=== PATIENT | male | born 1945 | race Caucasian/White ===

== ENCOUNTER → 2017-07-22 | Outpatient (CLI) | payer OTHER ==
[~2017-07-22] MED LIST: AMLO5TAB2 PO; ATOR40TA69 PO; CETI10CA8 PO; CHOL100040 PO; FLUO90CA4 PO; GABA-531 PO; LORA0.5T2 PO; MAGN1TAB2 PO; OMEG-98 PO; OXYB5TAB10 PO; REGADENOSON 0.4 MG/5 ML PF SYG IVP SCH; TAMS0.4C32 PO; [UNRECOGNIZED DRUG - CODE] PO
== END | disposition home or self-care (01) ==
LOC: SHCH 07:40
PROVIDERS: ATTEND Internal Medicine Cardiovascular Disease
DX: I25.709 Atherosclerosis of coronary artery bypass graft(s), unspecified, with unspecified angina pectoris (principal)
CPT/HCPCS: 78452; 93017; 96374; A9500 ×2; J2785

== ENCOUNTER 2020-01-17 09:57 | Inpatient (IN) | payer OTHER ==
[~2020-01-17] VITALS: Ht 177.8 cm; Wt 108.9 kg
[~2020-01-17 09:57] MED LIST changes: -AMLO5TAB2 PO; +AMLO5TAB9 PO; -OXYB5TAB10 PO; +OXYB5TAB15 PO; -REGADENOSON 0.4 MG/5 ML PF SYG IVP SCH
[2020-01-17 10:30] LABS: BASOPHILS % (AUTO) 0.7 % (0.0-5.0); EOSINOPHILS % (AUTO) 1.3 % (0.0-8.0); HEMATOCRIT 41.8 % (42-54); LYMPHOCYTES % (AUTO) 14.4 % (21.0-51.0); MEAN CORPUSCULAR HEMOGLOBIN 32.9 pg (27.0-33.0); MEAN CORPUSCULAR VOLUME 96.8 fL (79-99); MONOCYTES % (AUTO) 8.9 % (3.0-13.0); NEUTROPHILS % (AUTO) 74.2 % (40.0-77.0); PLATELET COUNT (AUTO) 143 K/uL (130-400); RED BLOOD CELL COUNT(AUTO) 4.32 MIL/uL (4.50-6.20); RED CELL DISTRIBUTION WIDTH 12.4 % (11.0-15.5); WHITE BLOOD COUNT (AUTO) 7.5 K/uL (4.8-10.8)
[2020-01-17 10:45] LABS: CREATININE 1.1 mg/dL (0.5-1.5); POTASSIUM 4.1 mmol/L (3.5-5.1)
[2020-01-17 10:50] LABS: ALBUMIN 3.9 g/dL (3.5-5.0); INR 1.06 (0.85-1.15); PARTIAL THROMBOPLASTIN TIME 27.2 SEC (26.3-35.5); PROTHROMBIN TIME 11.4 SEC (9.6-11.6); TOTAL PROTEIN, SERUM 7.3 g/dL (6.0-8.3)
[2020-01-17] MEDS ORDERED: ASPIRIN 325 MG TABLET ONE (11:11)
[2020-01-17] MEDS ORDERED: NITROGLYCERIN 0.4 MG SL TAB SL ONE (11:12)
[2020-01-17 11:41] LABS: APPEARANCE,URINE Clear (CLEAR); BILIRUBIN,URINE Negative (NEGATIVE); COLOR,URINE Yellow (YELLOW); GLUCOSE, URINE (UA) Negative (NEGATIVE); KETONES,URINE Negative (NEGATIVE); LEUKOCYTE ESTERASE ,URINE Trace (NEGATIVE); NITRATE,URINE Positive (NEGATIVE); OCCULT BLOOD,URINE Negative (NEGATIVE); PROTEIN,URINE Negative (NEGATIVE)
[2020-01-17] MEDS ORDERED: MORPHINE SULFATE 2 MG/ML 1ML SYG ONE (11:42)
[2020-01-17 11:56] LABS: BACTERIA,URINE Many /HPF (None Seen); RBC,URINE 0-1 /HPF (0-1); SPERM,URINE Rare /HPF (None Seen); SQUAMOUS EPITHELIAL CELL,UR Rare /HPF (0-2)
[2020-01-17] MEDS ORDERED: CEFTRIAXONE SODIUM 1 GM ONE (12:27)
[2020-01-17] MEDS ORDERED: NITROGLYCERIN 0.4 MG SL TAB SL PRN (14:15)
[2020-01-17] MEDS ORDERED: LACTULOSE 20 GM/30 ML UDCUP PO PRN (14:15)
[2020-01-17] MEDS ORDERED: ZOLPIDEM TARTRATE 5 MG TAB PO PRN (14:15)
[2020-01-17] MEDS ORDERED: HYDRALAZINE HCL 20 MG/ML VIAL IV PRN (14:15)
[2020-01-17] MEDS ORDERED: ONDANSETRON HCL 4 MG/2 ML VIAL IV PRN (14:15)
[2020-01-17] MEDS ORDERED: MORPHINE SULFATE 2 MG/ML 1ML SYG IV PRN (14:15)
[2020-01-17] MEDS ORDERED: ACETAMINOPHEN 325 MG TAB PO PRN ×2 (14:15)
[2020-01-17 15:06] LABS: HEMOGLOBIN A1C 6.9 % (4.0-6.0)
[2020-01-17 15:13] LABS: THYROID STIMULATING HORMONE 4.57 uIU/mL (0.36-3.74)
[2020-01-17] MEDS ORDERED: MORPHINE SULFATE 4 MG/1ML SYG ONE (17:47)
[2020-01-17] MEDS ORDERED: METOPROLOL TARTRATE 25 MG TAB PO SCH (21:00)
[2020-01-17] MEDS ORDERED: LEVOFLOXACIN 500 MG/D5W 100 ML 100 ML ONE (22:54)
[2020-01-17] MEDS ORDERED: METOPROLOL TARTRATE 25 MG TAB ONE (22:54)
[2020-01-18] MEDS ORDERED: INSULIN HUMULIN R 100 UNIT/ML 3ML ONE ×2 (08:09→12:29)
[2020-01-18 09:00] LABS: BASOPHILS % (AUTO) 0.3 % (0.0-5.0); EOSINOPHILS % (AUTO) 0.1 % (0.0-8.0); HEMATOCRIT 44.2 % (42-54); LYMPHOCYTES % (AUTO) 9.6 % (21.0-51.0); MEAN CORPUSCULAR HEMOGLOBIN 33.2 pg (27.0-33.0); MEAN CORPUSCULAR HGB CONC 34.4 g/dL (32.0-36.0); MEAN CORPUSCULAR VOLUME 96.5 fL (79-99); MONOCYTES % (AUTO) 4.6 % (3.0-13.0); NEUTROPHILS % (AUTO) 84.9 % (40.0-77.0); PLATELET COUNT (AUTO) 159 K/uL (130-400); RED BLOOD CELL COUNT(AUTO) 4.58 MIL/uL (4.50-6.20); RED CELL DISTRIBUTION WIDTH 12.3 % (11.0-15.5); WHITE BLOOD COUNT (AUTO) 9.1 K/uL (4.8-10.8)
[2020-01-18] MEDS: ENOXAPARIN SODIUM 40 MG/0.4 ML SYRINGE SQ SCH (09:00)
[2020-01-18] MEDS ORDERED: ASPIRIN 325 MG TABLET PO SCH (09:00)
[2020-01-18 09:14] LABS: CREATININE 1.4 mg/dL (0.5-1.5); POTASSIUM 4.2 mmol/L (3.5-5.1)
[2020-01-18] MEDS ORDERED: ENOXAPARIN SODIUM 40 MG/0.4 ML SYRINGE SQ ONE (10:17)
[2020-01-18] MEDS ORDERED: ASPIRIN 325 MG TABLET ONE (10:17)
[2020-01-18] MEDS ORDERED: METOPROLOL TARTRATE 25 MG TAB ONE (10:18)
[2020-01-18] MEDS: LEVOFLOXACIN 500 MG/D5W 100 ML 100 ML IV SCH ×2 (14:15→16:59)
[2020-01-18 16:00] VITALS: BP 165/83
[2020-01-18] MEDS ORDERED: METF-446 PO (16:28)
[2020-01-18] MEDS ORDERED: FINA5TAB41 PO (16:28)
[2020-01-18] MEDS ORDERED: DOCU100T PO (16:28)
[2020-01-18] MEDS ORDERED: CARV12.511 PO (16:28)
[2020-01-18] MEDS ORDERED: LISI-617 PO (16:28)
[2020-01-18] MEDS ORDERED: ISOS30TA6 PO (16:28)
[2020-01-18] MEDS ORDERED: BUPR150T8 PO (16:28)
[2020-01-18] MEDS ORDERED: ASPI-556 PO (16:28)
[2020-01-18] MEDS ORDERED: SENN8.6T32 PO (16:28)
[2020-01-18] MEDS ORDERED: B12 PO (16:30)
[2020-01-18] MEDS ORDERED: NITR0.4T50 SL (16:31)
[2020-01-18] MEDS: INSULIN HUMULIN R 100 UNIT/ML 3ML SQ SCH ×2 (16:59→21:00)
--- NOTE | 2020-01-18 19:21 | NUR ---
HAND OFF REPORT GIVEN TO TIFFANIE MOON
[2020-01-18 20:19] VITALS: BP 168/87
[2020-01-19] VITALS (8 sets, daily range): BP systolic 102–178; BP diastolic 57–84
[2020-01-19] MEDS: INSULIN HUMULIN R 100 UNIT/ML 3ML SQ SCH ×4 (06:07→20:40)
[2020-01-19 07:55] LABS: BASOPHILS % (AUTO) 0.4 % (0.0-5.0); EOSINOPHILS % (AUTO) 0.6 % (0.0-8.0); HEMATOCRIT 47.8 % (42-54); LYMPHOCYTES % (AUTO) 9.8 % (21.0-51.0); MEAN CORPUSCULAR HEMOGLOBIN 32.5 pg (27.0-33.0); MEAN CORPUSCULAR HGB CONC 34.5 g/dL (32.0-36.0); MEAN CORPUSCULAR VOLUME 94.3 fL (79-99); MONOCYTES % (AUTO) 5.9 % (3.0-13.0); PLATELET COUNT (AUTO) 178 K/uL (130-400); RED BLOOD CELL COUNT(AUTO) 5.07 MIL/uL (4.50-6.20); RED CELL DISTRIBUTION WIDTH 12.3 % (11.0-15.5); WHITE BLOOD COUNT (AUTO) 10.1 K/uL (4.8-10.8)
--- NOTE | 2020-01-19 08:24 | NUR ---
CM NOTE CM INITIAL ASSESSMENT DONE BY JEAN MUNROE RN . FACE SHEET UPDATED, PATIENT HAD CPAP, CANE AND RAMP, [facility]. WILL UPDATE INITIAL ASSESMENT INFORMATION TODAY Addendum: 01/19/20 at 0826 by SHENA CRONIN RN CM Amended: Links added.
[2020-01-19] MEDS ORDERED: ASPIRIN 81MG TAB.CHEW ONE (08:46)
[2020-01-19] MEDS: LISINOPRIL 2.5 MG TABLET PO SCH (08:50)
[2020-01-19] MEDS: GABAPENTIN 300 MG CAPSULE PO SCH ×2 (08:50→20:31)
[2020-01-19] MEDS: ISOSORBIDE MONO 30MG TAB SR PO SCH (08:52)
[2020-01-19] MEDS: ENOXAPARIN SODIUM 40 MG/0.4 ML SYRINGE SQ SCH (08:53)
[2020-01-19] MEDS: FINASTERIDE 5 MG TABLET PO SCH (08:53)
[2020-01-19] MEDS: TAMSULOSIN HCL 0.4 MG CAP.ER.24H PO SCH (08:53)
[2020-01-19] MEDS: SENNOSIDES 8.6 MG TABLET PO SCH (08:53)
[2020-01-19] MEDS: BUPROPION HCL 150 MG TABLET.SA PO SCH (08:55)
[2020-01-19] MEDS ORDERED: CARVEDILOL 6.25 MG TABLET PO SCH (09:00)
[2020-01-19] MEDS ORDERED: DOCUSATE NA 100MG/10ML UDCUP PO SCH (09:00)
[2020-01-19] MEDS: ASPIRIN 81MG TAB.CHEW PO SCH (09:00)
[2020-01-19 09:20] LABS: ALBUMIN 3.9 g/dL (3.5-5.0); BILIRUBIN,TOTAL 1.2 mg/dL (0.2-1.0); CREATININE 1.1 mg/dL (0.5-1.5); POTASSIUM 3.9 mmol/L (3.5-5.1); TOTAL PROTEIN, SERUM 7.5 g/dL (6.0-8.3)
[2020-01-19] MEDS ORDERED: MEROPENEM 1 GM VIAL IVP SCH (10:30)
[2020-01-19] MEDS ORDERED: [UNRECOGNIZED DRUG - REMARK] MISC SCH (10:45)
[2020-01-19] MEDS: SULFAMETHOX-TMP DS 800/160 TAB PO SCH ×2 (13:28→23:35)
[2020-01-19] MEDS: METOPROLOL TARTRATE 50 MG TAB PO SCH (20:31)
[2020-01-19] MEDS ORDERED: ATORVASTATIN CALCIUM 40 MG TABLET PO SCH (21:00)
[2020-01-20 03:51] VITALS: BP 105/47
[2020-01-20] MEDS: INSULIN HUMULIN R 100 UNIT/ML 3ML SQ SCH ×2 (06:04→11:30)
[2020-01-20] MEDS ORDERED: SULF1TAB42 PO (08:08)
[2020-01-20 08:26] VITALS: BP 124/54
[2020-01-20] MEDS: SENNOSIDES 8.6 MG TABLET PO SCH (08:27)
[2020-01-20] MEDS: ASPIRIN 81MG TAB.CHEW PO SCH (08:27)
[2020-01-20] MEDS: LISINOPRIL 2.5 MG TABLET PO SCH (08:27)
[2020-01-20] MEDS: ENOXAPARIN SODIUM 40 MG/0.4 ML SYRINGE SQ SCH (08:28)
[2020-01-20] MEDS: ISOSORBIDE MONO 30MG TAB SR PO SCH (08:28)
[2020-01-20] MEDS: TAMSULOSIN HCL 0.4 MG CAP.ER.24H PO SCH (08:28)
[2020-01-20] MEDS: GABAPENTIN 300 MG CAPSULE PO SCH (08:28)
[2020-01-20] MEDS: METOPROLOL TARTRATE 50 MG TAB PO SCH (08:28)
[2020-01-20] MEDS: FINASTERIDE 5 MG TABLET PO SCH (08:28)
[2020-01-20] MEDS: BUPROPION HCL 150 MG TABLET.SA PO SCH (08:29)
[2020-01-20] MEDS ORDERED: DOCUSATE SODIUM 100 MG CAP PO SCH (09:00)
[2020-01-20] MEDS ORDERED: METO-409 PO (09:57)
[2020-01-20] MEDS: SULFAMETHOX-TMP DS 800/160 TAB PO SCH (11:37)
[2020-01-20 11:39] VITALS: BP 126/80
--- NOTE | 2020-01-20 14:05 | NUR ---
DISCHARGE INSTRUCTIONS GIVEN TO PATIENT, MADE AWARE OF NEED TO FOLLOW [facility] IN ONE WEEK, MADE AWARE OF NEED TO FOLLOW UP WITH DR. PEDRAZA IN 1-2 WEEKS. INSTRUCTED TO SCHEDULE APPOINTMENTS NEXT BUSINESS DAY. PATIENT AT THIS TIME DENIES ANY CHEST PAIN, CONTINUES TO C/O SORENESS TO LEFT FLANK AREA HOWEVER STATES THAT IT HAS IMPROVED SINCE STARTING ANTIBIOTIC. IV AND TELE REMOVED. V/S STABLE, OXYGEN SATURATION 94-95% ON ROOM AIR, DENIES ANY SHORTNESS OF BREATH. PATIENT REPORTS HE USES A BIPAP AT NIGHT FOR SLEEP APNEA. 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 MADE AWARE OF MEDICATIONS CHANGES. CARVEDILOL DISCONTINUED BY DR. AGUILAR, PATIENT INSTRUCTED ON NEW RX FOR METOPROLOL SUCCINATE 100MG ONCE DAILY, PATIENT ALSO MADE AWARE OF NEW RX BACTRIM DS FOR ECOLI TO URINE. PATIENT VOICED UNDERSTANDING OF DISCHARGE INSTRUCTIONS. ALL QUESTIONS ANSWERED. PATIENT STATES HIS WIFES DAUGHTER WILL BE PICKING HIM UP.
== END 2020-01-20 16:10 | disposition home or self-care (01) | DRG 281 ==
LOC: EDH 09:57 → OBSVTOIN 12:13 → EDHIP 12:13 → DAHIP 01-18 15:58 → UNDODISIN 01-20 16:10
PROVIDERS: ADMIT Hospitalist; ATTEND Hospitalist
DX: I21.A1 Myocardial infarction type 2 (principal); I50.22 Chronic systolic (congestive) heart failure; N39.0 Urinary tract infection, site not specified; J98.11 Atelectasis; I24.8 Other forms of acute ischemic heart disease; E11.9 Type 2 diabetes mellitus without complications; I11.0 Hypertensive heart disease with heart failure; I25.5 Ischemic cardiomyopathy; I48.0 Paroxysmal atrial fibrillation; I25.10 Atherosclerotic heart disease of native coronary artery without angina pectoris; Z82.5 Family history of asthma and other chronic lower respiratory diseases; E66.9 Obesity, unspecified; E78.5 Hyperlipidemia, unspecified; Z83.3 Family history of diabetes mellitus; Z87.891 Personal history of nicotine dependence; Z95.1 Presence of aortocoronary bypass graft; I25.2 Old myocardial infarction; Z82.0 Family history of epilepsy and other diseases of the nervous system; Z82.49 Family history of ischemic heart disease and other diseases of the circulatory system
CPT/HCPCS: 36415; 71045; 71250; 74176; 76770; 80048; 80053; 80061; 81001; 82550; 82948; 83036; 83735; 84443; 84484; 85025; 85610; 85730; 87077; 87088; 87186; 93005; 93306; 93356; G0378; J0360; J0696; J1650; J1815; J1956; J2270

== ENCOUNTER 2020-12-23 13:52 | Emergency (ER) | payer OTHER ==
[~2020-12-23] VITALS: Ht 177.8 cm; Wt 104.3 kg
[~2020-12-23 13:52] MED LIST changes: -AMLO5TAB9 PO; +ASPI-556 PO; +BUPR150T8 PO; -CETI10CA8 PO; -CHOL100040 PO; +CYAN250010 PO; +DOCU250C21 PO; +ERGO500093 PO; +FINA5TAB41 PO; -FLUO90CA4 PO; +LISI-809 PO; -LORA0.5T2 PO; -MAGN1TAB2 PO; +METF-446 PO; +NITR0.4T50 SL; +OMEG-125 PO; -OMEG-98 PO; +OXYB-66 PO; -OXYB5TAB15 PO; +PIND5 PO; -TAMS0.4C32 PO; -[UNRECOGNIZED DRUG - CODE] PO
[2020-12-23] MEDS ORDERED: CYCLOBENZAPRINE HCL 10 MG TABLET PO ONE (14:30)
[2020-12-23] MEDS ORDERED: HYDROCODONE/ACETAMINOPHEN 5/325 MG TAB PO ONE (14:30)
[2020-12-23 15:19] LABS: BASOPHILS % (AUTO) 0.9 % (0.0-5.0); EOSINOPHILS % (AUTO) 2.9 % (0.0-8.0); HEMATOCRIT 43.6 % (42-54); LYMPHOCYTES % (AUTO) 23.5 % (21.0-51.0); MEAN CORPUSCULAR HEMOGLOBIN 31.9 pg (27.0-33.0); MEAN CORPUSCULAR HGB CONC 33.5 g/dL (32.0-36.0); MEAN CORPUSCULAR VOLUME 95.2 fL (79-99); MONOCYTES % (AUTO) 9.8 % (3.0-13.0); NEUTROPHILS % (AUTO) 61.6 % (40.0-77.0); PLATELET COUNT (AUTO) 144 K/uL (130-400); RED BLOOD CELL COUNT(AUTO) 4.58 MIL/uL (4.50-6.20); RED CELL DISTRIBUTION WIDTH 13.2 % (11.0-15.5); WHITE BLOOD COUNT (AUTO) 5.5 K/uL (4.8-10.8)
[2020-12-23 15:28] LABS: CREATININE 1.1 mg/dL (0.5-1.5)
[2020-12-23 15:32] LABS: ALBUMIN 3.4 g/dL (3.5-5.0); BILIRUBIN,TOTAL 0.6 mg/dL (0.2-1.0); TOTAL PROTEIN, SERUM 6.5 g/dL (6.0-8.3)
[2020-12-23] MEDS ORDERED: HYDROCODONE/ACETAMINOPHEN 5/325 MG TAB ONE (16:17)
[2020-12-23] MEDS ORDERED: CYCLOBENZAPRINE HCL 10 MG TABLET ONE (16:17)
[2020-12-23] MEDS ORDERED: CYCL10 PO (17:58)
[2020-12-23] MEDS ORDERED: TRAM1TAB PO (17:58)
== END 2020-12-23 18:29 | disposition home or self-care (01) ==
LOC: EDH 14:41
DX: S16.1XXA Strain of muscle, fascia and tendon at neck level, initial encounter (principal); S29.012A Strain of muscle and tendon of back wall of thorax, initial encounter; S70.01XA Contusion of right hip, initial encounter; S80.01XA Contusion of right knee, initial encounter; E11.9 Type 2 diabetes mellitus without complications; I10 Essential (primary) hypertension; E78.5 Hyperlipidemia, unspecified; Z95.1 Presence of aortocoronary bypass graft; Z79.899 Other long term (current) drug therapy; Z88.0 Allergy status to penicillin; Z91.040 Latex allergy status; V49.49XA Driver injured in collision with other motor vehicles in traffic accident, initial encounter; Y93.89 Activity, other specified; Y92.89 Other specified places as the place of occurrence of the external cause; Y99.8 Other external cause status
CPT/HCPCS: 36415; 70450; 71045; 72125; 72128; 73501; 73562; 80053; 84484; 85025

== ENCOUNTER → 2021-05-21 | Outpatient (CLI) | payer OTHER ==
[~2021-05-21] MED LIST changes: +CYCL10TA16 PO; +DOCU-378 PO; -DOCU250C21 PO; -LISI-809 PO; +LISI5TAB21 PO; +TRAM1TAB PO
== END | disposition home or self-care (01) ==
LOC: SHCH 13:13
PROVIDERS: ATTEND Internal Medicine Cardiovascular Disease
DX: I70.203 Unspecified atherosclerosis of native arteries of extremities, bilateral legs (principal)
CPT/HCPCS: 93925